=== PATIENT | male | born 1930 | race Caucasian/White ===

== ENCOUNTER 2017-02-03 11:10 | Emergency (ER) | payer OTHER ==
[2017-02-03] MEDS ORDERED: DIPHTH,PERTUSS(ACELL),TET 0.5 ML DISP.SYRIN IM ONE (11:43)
[2017-02-03] MEDS ORDERED: BACITRACIN 30 GM TUBE TOPICAL OINTMENT TP ONE (11:44)
--- NOTE | 2017-02-03 11:46 | PDOC ---
History of Present Illness - General Chief Complaint: Injury Stated Complaint: FALL Time Seen by Provider: 02/03/17 11:37 History Source: EMS Exam Limitations: Clinical Condition, Dementia - History of Present Illness Initial Comments: 02/03/17 11:44 86 yr male [facility] from [facility] ([phone]) for fall out of bed. Pt has nasal contusions and bloody nose. Pt is alert oriented to himself states year is [birth year]. Pt denies fall. Pt is DNR. 02/03/17 11:53 02/03/17 12:45 Severity: reports: mild Pain Location: reports: face Method of Injury: Yes: fall Past History - Past Medical History Allergies/Adverse Reactions: Allergies Allergy/AdvReac Type Severity Reaction Status Date / Time No Allergy Information Allergy Verified 02/03/17 11:22 Available Home Medications: Ambulatory Orders Acetaminophen [Tylenol] 1,000 mg PO BID 02/03/17 Aspirin [ASA -] 81 mg PO DAILY 02/03/17 Dextromethorphan HBr/Quinidine [Nuedexta 20-10 mg Capsule] 1 each PO Q12H Digoxin [Lanoxin -] 0.125 mg PO DAILY 02/03/17 Mineral Oil/Hydrophil Petrolat [Dermaphor Ointment] 118 gm TP DAILY 02/03/17 Perphenazine 2 mg PO DAILY 02/03/17 Cardiac Disorders: Yes (Afib) Dementia: Yes - Psycho/Social/Smoking Cessation Hx Suicidal Ideation: No Smoking History: Unknown if ever smoked Hx Alcohol Use: No Drug/Substance Use Hx: No *Physical Exam - Vital Signs Last Vital Signs Temp Pulse Resp BP Pulse Ox 98.6 F 96 H 20 122/57 98 02/03/17 11:19 02/03/17 11:19 02/03/17 11:19 02/03/17 11:19 02/03/17 11:19 - Physical Exam General Appearance: Yes: Nourished, Thin HEENT: positive: EOMI, CHAY, TMs Normal, Other (dried blood on nose and mouth, abrasion contusions to the nose , superficial abrasion to the nasal bridge no active bleeding. ). negative: Pharyngeal Erythema, TM Erythema Neck: negative: Tender Respiratory/Chest: positive: Lungs Clear, Normal Breath Sounds Cardiovascular: positive: Regular Rhythm, Regular Rate Gastrointestinal/Abdominal: positive: Normal Bowel Sounds, Soft. negative: Tender Extremity: positive: Normal Capillary Refill, Normal Inspection Integumentary: positive: Normal Color, Dry, Warm, Pale Neurologic: positive: Alert, Confused Procedures - Laceration/Wound Repair Face Wound Length: to 2.5 cm Wound Explored: clean Wound's Depth, Shape: superficial (nasal bridge abrasion ) Irrigated w/ Saline: Yes Sterile Dressing Applied: Yes (bacitracin and bandaid applied ) Medical Decision Making - Medical Decision Making 02/03/17 11:54 cc: fall out of bed witnessed by staff as per nursing program chair Amaya. no LOC, pt usually confused and aggitated. nasal injury , facial trauma will ct head, neck facial bones labs tetanus booster, bacitracin to the wound 02/03/17 12:23 discussed with ER attending will give Ativan 2mg IM for aggitation 02/03/17 12:46 02/03/17 14:54 pt has become more calm after medication, pt to ct scan. 02/03/17 15:52 cat scans resulted negative for fracture m neg head and neck cat scan. will send back to the skilled nursing . spoke to Lashaun RN at the home is aware pt is returning and will notify the house doctor. case discussed with ER attending agrees with plan to send back to the skilled nursing. all cat scans are negative. wound care has been done by the nurse in the ER. 02/03/17 16:14 *DC/Admit/Observation/Transfer Diagnosis at time of Disposition: Abrasion Contusion Qualifiers: Encounter type: initial encounter Contusion area: head Contusion of head detail : nose Qualified Code(s): S00.33XA - Contusion of nose, initial encounter - Discharge Dispostion Disposition: [facility] Condition at time of disposition: Good - Referrals Referrals: Yessi Jones MD [Primary Care Provider] - - Patient Instructions Additional Instructions: place bacitracin daily to the wound on the nose follow with the ENT for follow up and with the house doctor in the skilled nursing return to ER for any worsening symptoms use a saline nasal spray to the nose 3-4 times a day to keep nares moist and clear out any blood
[2017-02-03 12:01] VITALS: TEMP 98.6; BMI 23.5
[2017-02-03] MEDS ORDERED: LORAZEPAM CARPU-JECT 2 MG/ML DISP.SYRIN IM ONE (12:17)
[2017-02-03] MEDS ORDERED: LORAZEPAM CARPU-JECT 2 MG/ML DISP.SYRIN ONE (12:21)
[2017-02-03] MEDS ORDERED: BACITRACIN 0.9 GM PACKET ONE (16:03)
[2017-02-03 17:35] VITALS: BP 107/66; PULSE 80
== END 2017-02-03 17:36 ==
LOC: JER 11:10
PROC: 3E0234Z Introduction of Serum, Toxoid and Vaccine into Muscle, Percutaneous Approach (ICD-10-PCS; principal; 2017-02-03)
PROC: 3E033NZ Introduction of Analgesics, Hypnotics, Sedatives into Peripheral Vein, Percutaneous Approach (ICD-10-PCS; 2017-02-03)
DX: S00.33XA Contusion of nose, initial encounter (principal); W06.XXXA Fall from bed, initial encounter; Y93.9 Activity, unspecified; Y92.122 Bedroom in nursing home as the place of occurrence of the external cause; I48.91 Unspecified atrial fibrillation; F03.90 Unspecified dementia, unspecified severity, without behavioral disturbance, psychotic disturbance, mood disturbance, and anxiety
CPT/HCPCS: 70450-TC; 70486-TC; 72125-TC; 90471; 90715; 96372; 99283-25